=== PATIENT | female | born 2005 | race African-American/Black ===

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

== ENCOUNTER 2025-05-10 13:40 | Emergency (ER) | payer OTHER ==
[2025-05-10] MEDS ORDERED: Acetaminophen 500 MG TAB ONE (14:12)
== END 2025-05-10 14:45 | disposition home or self-care (01) ==
LOC: ERS 13:40
DX: S00.83XA Contusion of other part of head, initial encounter (principal); Z75.3 Unavailability and inaccessibility of health-care facilities; W01.0XXA Fall on same level from slipping, tripping and stumbling without subsequent striking against object, initial encounter; Y92.481 Parking lot as the place of occurrence of the external cause
CPT/HCPCS: 70450

== ENCOUNTER 2025-05-17 13:28 | Emergency (ER) | payer OTHER ==
[2025-05-17 13:59] LABS: Bacteria/HPF None Seen HPF (None Seen); CAUTI Indications for Culture Dysuria,urgency,freq; Glucose, Urine (Dipstick) Normal (Negative); Leukocyte Negative Leu/uL (Negative); Protein, Urine (Dipstick) Negative (Neg-Trace); RBC/HPF 0-3 HPF (0-3); Specific Gravity, Urine 1.012 (1.002-1.036); WBC/HPF 0-3 HPF (0-3)
[2025-05-17 14:05] LABS: Urine Culture Reflex No No
[2025-05-17 14:08] LABS: Pregnancy Test - Urine (BHCG) Negative (Negative); Pregu Control Background? CLEAR/WHITE (CLR/WHITE); Pregu Control Bar Appear? YES (CONTROL BAR)
== END 2025-05-17 14:59 | disposition home or self-care (01) ==
LOC: ERS 13:28
DX: N39.0 Urinary tract infection, site not specified (principal); R11.2 Nausea with vomiting, unspecified
CPT/HCPCS: 81001; 81025; 99283

== ENCOUNTER 2025-07-17 16:16 | Emergency (ER) | payer MEDICAID, SELFPAY | END 2025-07-17 18:31 | disposition home or self-care (01) | LOC: ERS 16:16 | DX: O99.891 Other specified diseases and conditions complicating pregnancy (principal); J02.9 Acute pharyngitis, unspecified; R09.81 Nasal congestion; R06.2 Wheezing | CPT/HCPCS: 87081; 87428; 87430; 99283 ==

== ENCOUNTER 2025-09-06 20:36 | Emergency (ER) | payer MEDICAID | END 2025-09-06 22:04 | disposition home or self-care (01) | LOC: ERS 20:36 | DX: O99.891 Other specified diseases and conditions complicating pregnancy (principal); R05.1 Acute cough; Z79.899 Other long term (current) drug therapy | CPT/HCPCS: 87081; 87428; 87430; 99283 ==